=== PATIENT | female | born 1970 | race Caucasian/White ===

== ENCOUNTER 2017-10-24 17:12 | Emergency (ER) | payer MEDICAID ==
[~2017-10-24] VITALS: Ht 162.6 cm; Wt 59.9 kg
[2017-10-24 17:33] VITALS: BP 143/100
[2017-10-24] MEDS ORDERED: cefTRIAXone SOD 1,000 MG VL IM ONE (20:30)
[2017-10-24] MEDS ORDERED: KETOROLAC TROMETH 60MG/2ML VIAL IM ONE (20:30)
== END 2017-10-24 21:15 | disposition home or self-care (01) ==
LOC: ER 17:12
DX: L84 Corns and callosities (principal)
CPT/HCPCS: 96372; 99284; J0696; J1885

== ENCOUNTER 2017-10-25 00:22 | Emergency (ER) | payer MEDICAID, OTHER ==
[~2017-10-25] VITALS: Ht 162.6 cm; Wt 61.7 kg
[2017-10-25] MEDS ORDERED: IBUPROFEN 600 MG TAB PO ONE (01:45)
[2017-10-25 03:59] LABS: Urine Pregnacy Test Negative (Negative)
[2017-10-25 04:24] LABS: Alcohol, Urine < 3.0 mg/dL (0-5); Amphetamine Screen, Urine POSITIVE (NEGATIVE); Barbiturate Scree,Urine NEGATIVE (NEGATIVE); Benzodiazephine Screen, Urine NEGATIVE (NEGATIVE); Cannabinoid Screen, Urine POSITIVE (NEGATIVE); Cocaine Screen, Urine NEGATIVE (NEGATIVE); Opiate Scree,Urine NEGATIVE (NEGATIVE); Phencyclidine Screen, Urine NEGATIVE (NEGATIVE)
[2017-10-25 04:48] VITALS: BP 134/83
== END 2017-10-25 05:13 | disposition home or self-care (01) ==
LOC: ER 00:22
DX: S90.812A Abrasion, left foot, initial encounter (principal); S90.811A Abrasion, right foot, initial encounter; F12.10 Cannabis abuse, uncomplicated; F15.10 Other stimulant abuse, uncomplicated; F17.210 Nicotine dependence, cigarettes, uncomplicated; Z59.0 Homelessness; X58.XXXA Exposure to other specified factors, initial encounter; Y93.89 Activity, other specified; Y92.89 Other specified places as the place of occurrence of the external cause; Y99.8 Other external cause status
CPT/HCPCS: 80307; 81025